=== PATIENT | male | born 1940 | race Caucasian/White ===

== ENCOUNTER 2019-11-27 05:52 | Inpatient (IN) ==
[2019-11-27] MEDS ORDERED: Buffered Lidocaine 1% SYRIN 1 ml INTRADERM ONE (06:00)
[2019-11-27] MEDS ORDERED: Lactated Ringers 1000 ml BAG 1,000 ML IV SCH ×2 (06:00→13:00)
[2019-11-27] MEDS ORDERED: ceFAZolin 2 GM PREMIX 2 GM/50 ML BAG ONE (08:06)
[2019-11-27] MEDS ORDERED: Midazolam 5 mg/5 ml VIAL 1 mg/ml 5 ml VIAL (5 mg) ONE (08:19)
[2019-11-27] MEDS ORDERED: Propofol 10 MG/ML 20 ML BTL ONE ×2 (08:23→10:33)
[2019-11-27] MEDS ORDERED: Phenylephrine IV 10 MG/ML 1 ml VIAL ONE (08:26)
[2019-11-27] MEDS ORDERED: Bupivacaine 0.5% SDV PF 30ML VIAL ONE (09:23)
[2019-11-27] MEDS ORDERED: Propofol 10 mg/ml 100 ML BTL 100 ML ONE (10:37)
[2019-11-27] MEDS ORDERED: Naloxone 0.4 mg VIAL 0.4 mg/ml 1 ml VIAL IV PRN (12:13)
[2019-11-27] MEDS ORDERED: Ondansetron 4 mg VIAL 2 MG/ML 2 ml VIAL IV PRN ×2 (12:13→12:34)
[2019-11-27] MEDS ORDERED: Magnesium Hydroxide LIQ 30 ML UDC PO PRN (12:34)
[2019-11-27] MEDS ORDERED: diPHENhydraMINE 25 mg TAB PO PRN (12:34)
[2019-11-27] MEDS ORDERED: Ondansetron ODT 4 mg TAB 4 MG TAB PO PRN (12:34)
[2019-11-27] MEDS ORDERED: diPHENhydraMINE IV 50 MG/ML 1 ml VIAL (BENADRYL) IV PRN (12:34)
[2019-11-27] MEDS ORDERED: Lactulose 30 ml UDC PO PRN (12:34)
[2019-11-27] MEDS ORDERED: Morphine 2 MG/ML SYRINGE IV PRN (12:34)
[2019-11-27] MEDS ORDERED: oxyCODONE/Acetamin 5/325 mg TAB PO PRN ×2 (12:34)
[2019-11-27] MEDS ORDERED: HYDROcodone/ACETAMIN 5/325 mg TAB PO PRN ×2 (15:51)
[2019-11-27] MEDS: ceFAZolin 1 GM ADVAN 1 GM in NS 0.9% 50 ML 50 ML IVPB SCH (16:42)
[2019-11-27] MEDS ORDERED: NS 0.9% 1000 ml BAG 1,000 ML IV ONE (16:51)
[2019-11-27] MEDS: Magnesium Hydroxide LIQ 30 ML UDC PO SCH (20:16)
[2019-11-28] MEDS ORDERED: Polyethylene Glycol 3350 17 GM PACKET PO PRN (00:01)
[2019-11-28] MEDS: ceFAZolin 1 GM ADVAN 1 GM in NS 0.9% 50 ML 50 ML IVPB SCH ×2 (00:14→08:48)
[2019-11-28 05:34] LABS: Hematocrit 32 % (42-52); Hemoglobin 11.4 g/dL (14.0-18.0); Mean Platelet Volume 7.6 fL (7.4-10.4); Platelet Count 162 10^3/uL (150-450)
[2019-11-28 05:47] LABS: BUN/Creatinine Ratio 13.8 (8-20); Calcium 8.3 mg/dL (8.6-10.3); EGFR African American 113.4 (>60); EGFR Non-African American 93.7 (>60); Potassium 3.9 mmol/L (3.5-5.0)
[2019-11-28] MEDS: Magnesium Hydroxide LIQ 30 ML UDC PO SCH (08:48)
[2019-11-28] MEDS ORDERED: Vitamin THERAPEUTIC TAB PO SCH (09:00)
[2019-11-28 12:09] VITALS: BP 137/58
== END 2019-11-28 14:45 | disposition home health service (06) | DRG 470 ==
LOC: AA 05:52 → SSU 12:34
PROVIDERS: ADMIT Orthopaedic Surgery Adult Reconstructive Orthopaedic Surgery; ATTEND Orthopaedic Surgery Adult Reconstructive Orthopaedic Surgery

== ENCOUNTER 2019-12-10 16:23 | Inpatient (IN) ==
[2019-12-10 16:58] LABS: ABS Basophils 0.1 10^3/ul (0-0.2); ABS Eosinophils 0.2 10^3/ul (0-0.6); ABS Lymphocytes 1.7 10^3/ul (1.0-4.8); ABS Monocytes 0.9 10^3/ul (0-0.8); ABS Neutrophils 5.7 10^3/ul (1.5-7.7); Eosinophil % 2.1 %; Hematocrit 33 % (42-52); Hemoglobin 11.8 g/dL (14.0-18.0); Lymphocyte % 19.7 %; Mean Corpuscular HGB Conc 36 g/dL (31-36); Mean Corpuscular Hemoglobin 33 pg (27-31); Mean Corpuscular Volume 94 fL (80-94); Mean Platelet Volume 6.6 fL (7.4-10.4); Platelet Count 433 10^3/uL (150-450); Red Blood Count 3.54 10^6 /uL (4.18-5.48); Red Cell Distribution Width 14 % (10-15); White Blood Count 8.5 10^3/uL (3.5-10.8)
[2019-12-10 17:21] LABS: Troponin I 0.04 ng/mL (<0.03)
[2019-12-10 17:23] LABS: ALT 25 U/L (7-52); AST 23 U/L (13-39); Albumin 3.8 g/dL (3.2-5.2); Albumin/Globulin Ratio 1.2 (1-3); Alkaline Phosphatase 76 U/L (34-104); Anion Gap 7 mmol/L (2-11); BUN/Creatinine Ratio 19.5 (8-20); Blood Urea Nitrogen 16 mg/dL (6-24); CO2 Carbon Dioxide 28 mmol/L (22-32); Calcium 9.5 mg/dL (8.6-10.3); Chloride 102 mmol/L (101-111); EGFR African American 110.2 (>60); EGFR Non-African American 91.1 (>60); Globulin 3.2 g/dL (2-4); Glucose 100 mg/dL (70-100); Potassium 4.2 mmol/L (3.5-5.0); Sodium 137 mmol/L (135-145)
[2019-12-10] MEDS ORDERED: Iohexol 350 (CONTRAST) 500 ML MDV IV ONE (17:26)
[2019-12-10] MEDS ORDERED: NS 0.9% 1000 ml BAG 1,000 ML IV ONE (18:15)
[2019-12-10] MEDS ORDERED: Ondansetron 4 mg VIAL 2 MG/ML 2 ml VIAL IV PRN (19:59)
[2019-12-10] MEDS ORDERED: Furosemide 40 mg/4 ml IV VIAL IV SLOW PU ONE (19:59)
[2019-12-10] MEDS ORDERED: HYDROcodone/ACETAMIN 5/325 mg TAB PO PRN (20:04)
[2019-12-10 20:35] LABS: Troponin I 0.03 ng/mL (<0.03)
[2019-12-10 23:24] LABS: Troponin I 0.03 ng/mL (<0.03)
[2019-12-11 05:26] LABS: ABS Basophils 0.1 10^3/ul (0-0.2); ABS Eosinophils 0.2 10^3/ul (0-0.6); ABS Lymphocytes 1.9 10^3/ul (1.0-4.8); ABS Monocytes 0.6 10^3/ul (0-0.8); ABS Neutrophils 3.7 10^3/ul (1.5-7.7); Eosinophil % 3.1 %; Hematocrit 31 % (42-52); Hemoglobin 10.8 g/dL (14.0-18.0); Lymphocyte % 29.3 %; Mean Corpuscular HGB Conc 35 g/dL (31-36); Mean Corpuscular Hemoglobin 33 pg (27-31); Mean Corpuscular Volume 94 fL (80-94); Mean Platelet Volume 6.8 fL (7.4-10.4); Nucleated Red Blood Cells % 0.1; Platelet Count 415 10^3/uL (150-450); Red Blood Count 3.27 10^6 /uL (4.18-5.48); Red Cell Distribution Width 14 % (10-15); White Blood Count 6.4 10^3/uL (3.5-10.8)
[2019-12-11 05:36] LABS: INR 1.33 (0.82-1.09)
[2019-12-11 05:42] LABS: BUN/Creatinine Ratio 19.7 (8-20); Calcium 9.1 mg/dL (8.6-10.3); EGFR African American 120.3 (>60); EGFR Non-African American 99.5 (>60); HDL Cholesterol 33.7 mg/dL; Potassium 3.9 mmol/L (3.5-5.0)
[2019-12-11] MEDS ORDERED: Furosemide 40 mg/4 ml IV VIAL IV SLOW PU SCH (09:00)
[2019-12-11 15:08] VITALS: BP 117/56
== END 2019-12-11 17:56 | disposition home or self-care (01) | DRG 155 ==
LOC: ED 16:23 → MEDTELE 21:28
PROVIDERS: ADMIT Pediatrics; ATTEND Internal Medicine

== ENCOUNTER 2020-12-13 11:39 | Observation (INO) ==
[2020-12-13 12:01] LABS: ABS Eosinophils 0.1 10^3/ul (0-0.6); ABS Lymphocytes 1.2 10^3/ul (1.0-4.8); ABS Monocytes 0.6 10^3/ul (0-0.8); ABS Neutrophils 7.7 10^3/ul (1.5-7.7); Eosinophil % 1.1 %; Hematocrit 41 % (42-52); Hemoglobin 14.2 g/dL (14.0-18.0); Lymphocyte % 12.7 %; Mean Corpuscular HGB Conc 35 g/dL (31-36); Mean Corpuscular Hemoglobin 33 pg (27-31); Mean Corpuscular Volume 95 fL (80-94); Mean Platelet Volume 7.7 fL (7.4-10.4); Platelet Count 197 10^3/uL (150-450); Red Blood Count 4.29 10^6 /uL (4.18-5.48); Red Cell Distribution Width 13 % (10-15); White Blood Count 9.6 10^3/uL (3.5-10.8)
[2020-12-13 12:15] LABS: INR 1.12 (0.86-1.15)
[2020-12-13 12:19] LABS: ALT 23 U/L (7-52); Albumin/Globulin Ratio 1.3 (1-3); Alkaline Phosphatase 65 U/L (35-149); Blood Urea Nitrogen 14 mg/dL (6-24); CO2 Carbon Dioxide 26 mmol/L (22-32); Calcium 9.3 mg/dL (8.6-10.3); Chloride 101 mmol/L (101-111); EGFR African American 78.3 (>60); EGFR Non-African American 64.7 (>60); Glucose 141 mg/dL (70-100); Magnesium 1.5 mg/dL (1.9-2.7); Sodium 135 mmol/L (135-145)
[2020-12-13] MEDS ORDERED: Magnesium Sulfate 2 gm BAG 2 GM/50 ML BAG IVPB ONE (12:50)
[2020-12-13 12:59] LABS: TSH Ultra Thyroid Stim Horm 2.02 mcIU/mL (0.34-5.60)
[2020-12-13 13:10] LABS: Anion Gap 8 mmol/L (2-11)
[2020-12-13] MEDS: Enoxaparin 40 MG/0.4 ML SYR SUBCUT SCH (15:45)
[2020-12-13 16:00] LABS: Urine Appearance Clear; Urine Bilirubin Negative (Negative); Urine Blood Negative (Negative); Urine Color Colorless; Urine Glucose Negative (Negative); Urine Ketones Negative (Negative); Urine Nitrite Negative (Negative); Urine Protein Negative (Negative); Urine Specific Gravity 1.003 (1.002-1.030); Urine Urobilinogen Negative (Negative)
[2020-12-14 06:28] LABS: ABS Basophils 0.1 10^3/ul (0-0.2); ABS Eosinophils 0.2 10^3/ul (0-0.6); ABS Lymphocytes 2.3 10^3/ul (1.0-4.8); ABS Monocytes 0.6 10^3/ul (0-0.8); ABS Neutrophils 4.1 10^3/ul (1.5-7.7); Eosinophil % 2.3 %; Hematocrit 38 % (42-52); Hemoglobin 13.7 g/dL (14.0-18.0); Lymphocyte % 32.4 %; Mean Corpuscular HGB Conc 36 g/dL (31-36); Mean Corpuscular Hemoglobin 34 pg (27-31); Mean Corpuscular Volume 94 fL (80-94); Mean Platelet Volume 7.6 fL (7.4-10.4); Nucleated Red Blood Cells % 0.1; Platelet Count 191 10^3/uL (150-450); Red Blood Count 4.07 10^6 /uL (4.18-5.48); Red Cell Distribution Width 13 % (10-15); White Blood Count 7.3 10^3/uL (3.5-10.8)
[2020-12-14 06:40] LABS: Calcium 8.7 mg/dL (8.6-10.3); EGFR African American 108.4 (>60); EGFR Non-African American 89.6 (>60); Potassium 3.9 mmol/L (3.5-5.0)
[2020-12-14] MEDS: Aspirin EC 81 mg TAB.EC (enteric coated) PO SCH (07:37)
[2020-12-14 08:05] LABS: Magnesium 1.8 mg/dL (1.9-2.7)
[2020-12-14] MEDS ORDERED: Magnesium Sulfate 2 gm BAG 2 GM/50 ML BAG IVPB ONE (09:44)
[2020-12-14] MEDS: Enoxaparin 40 MG/0.4 ML SYR SUBCUT SCH (16:17)
[2020-12-15 06:18] LABS: Calcium 8.7 mg/dL (8.6-10.3); EGFR African American 118.2 (>60); EGFR Non-African American 97.7 (>60); Potassium 4.3 mmol/L (3.5-5.0)
[2020-12-15 06:28] LABS: Hematocrit 39 % (42-52); Hemoglobin 13.7 g/dL (14.0-18.0); Mean Corpuscular HGB Conc 35 g/dL (31-36); Mean Corpuscular Hemoglobin 33 pg (27-31); Mean Corpuscular Volume 95 fL (80-94); Mean Platelet Volume 7.7 fL (7.4-10.4); Platelet Count 187 10^3/uL (150-450); Red Blood Count 4.12 10^6 /uL (4.18-5.48); Red Cell Distribution Width 13 % (10-15); White Blood Count 6.8 10^3/uL (3.5-10.8)
[2020-12-15] MEDS: Aspirin EC 81 mg TAB.EC (enteric coated) PO SCH (09:41)
[2020-12-15] MEDS ORDERED: Regadenoson 0.4 MG/5 ML SYRINGE ONE (11:54)
[2020-12-15 15:06] VITALS: BP 107/57
== END 2020-12-15 15:33 | disposition home or self-care (01) ==
LOC: MEDTELE 11:39 → ED 11:39 → SUATTDRO 14:56 → MEDTELE 16:37
PROVIDERS: ADMIT Internal Medicine; ATTEND Hospitalist